=== PATIENT | male | born 1955 | race Caucasian/White ===

== ENCOUNTER 2016-07-05 09:58 | Outpatient (CLI) | payer MEDICARE | END 2016-07-05 09:59 | disposition home or self-care (01) | DX: E78.5 Hyperlipidemia, unspecified (principal); Z79.899 Other long term (current) drug therapy; F41.9 Anxiety disorder, unspecified; N18.2 Chronic kidney disease, stage 2 (mild) ==

== ENCOUNTER 2016-09-04 10:12 | Outpatient (CLI) | payer OTHER, MEDICARE ==
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
== END 2016-09-04 10:13 | disposition home or self-care (01) ==
LOC: DI 10:12
PROVIDERS: ATTEND Internal Medicine
DX: M50.30 Other cervical disc degeneration, unspecified cervical region (principal); M47.812 Spondylosis without myelopathy or radiculopathy, cervical region; G31.9 Degenerative disease of nervous system, unspecified; I67.82 Cerebral ischemia
CPT/HCPCS: 70450; 72125

== ENCOUNTER 2017-01-28 08:00 | Outpatient (CLI) | payer MEDICARE ==
[2017-01-28 20:24] LABS: ALBUMIN/GLOBULIN RATIO 1.4 (1.0-2.2); BILIRUBIN,TOTAL 0.9 mg/dL (0.2-1.0); BUN - BLOOD UREA NITROGEN 16 mg/dL (6-20); CALCIUM 9.2 mg/dL (8.5-10.3); CARBON DIOXIDE - CO2 28 mmol/L (21-32); CHLORIDE 102 mmol/L (101-111); CHOL/HDL RATIO 5.4 (<5.0); CHOLESTEROL 172 mg/dL; CREATININE 0.9 mg/dL (0.6-1.2); GFR - MDRD 86 (>89); GLUCOSE 91 mg/dL (70-100); HDL CHOLESTEROL 32 mg/dL; LDL/HDL RATIO 2.3 (<3.6); POTASSIUM 3.8 mmol/L (3.5-5.0); SODIUM 138 mmol/L (135-145); TRIGLYCERIDES 332 mg/dL; VLDL CHOLESTEROL 66 mg/dL
== END 2017-01-28 08:01 | disposition home or self-care (01) ==
LOC: LAB.N 08:00
PROVIDERS: ATTEND Internal Medicine
DX: N18.2 Chronic kidney disease, stage 2 (mild) (principal); E78.5 Hyperlipidemia, unspecified; Z12.5 Encounter for screening for malignant neoplasm of prostate
CPT/HCPCS: 36415; 80053; 80061; G0103; 84153

== ENCOUNTER 2017-08-07 10:42 | Outpatient (CLI) | payer MEDICARE ==
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
== END 2017-08-07 10:43 | disposition home or self-care (01) ==
LOC: DI.N 10:42
PROVIDERS: ATTEND Internal Medicine
DX: J44.9 Chronic obstructive pulmonary disease, unspecified (principal)
CPT/HCPCS: 71046

== ENCOUNTER 2017-10-30 08:00 | Outpatient (CLI) | payer MEDICARE ==
[2017-10-30 13:10] LABS: HGB - HEMOGLOBIN 17.4 g/dL (14.0-18.0); MEAN CORPUSCULAR HEMOGLOBIN 32.1 pg (27.0-31.0); MEAN CORPUSCULAR HGB CONC 34.7 g/dL (32.0-36.0); MEAN CORPUSCULAR VOLUME 92.6 fL (80.0-94.0); MEAN PLATELET VOLUME 8.7 fL (7.4-11.4); RED BLOOD COUNT 5.41 10^6/uL (4.70-6.10); WHITE BLOOD COUNT 9.8 x10^3/uL (4.8-10.8)
[2017-10-30 13:20] LABS: ALBUMIN 4.4 g/dL (3.2-5.5); ALBUMIN/GLOBULIN RATIO 1.2 (1.0-2.2); ALKALINE PHOSPHATASE 30 IU/L (42-121); ALT ALANINE AMINOTRANSFERASE 42 IU/L (10-60); AST ASPARTATE AMINOTRANSFERASE 26 IU/L (10-42); BUN - BLOOD UREA NITROGEN 21 mg/dL (6-20); CALCIUM 9.1 mg/dL (8.5-10.3); CARBON DIOXIDE - CO2 26 mmol/L (21-32); CHLORIDE 100 mmol/L (101-111); CHOL/HDL RATIO 5.6 (<5.0); CHOLESTEROL 167 mg/dL; GFR - MDRD 75 (>89); GLUCOSE 112 mg/dL (70-100); HDL CHOLESTEROL 30 mg/dL; LDL CHOLESTEROL,CALCULATED 98 mg/dL; LDL/HDL RATIO 3.3 (<3.6); SODIUM 136 mmol/L (135-145); TOTAL PROTEIN 8.1 g/dL (6.7-8.2); VLDL CHOLESTEROL 39 mg/dL
== END 2017-10-30 08:01 | disposition home or self-care (01) ==
LOC: LAB.N 08:00
PROVIDERS: ATTEND Internal Medicine
DX: E78.5 Hyperlipidemia, unspecified (principal); Z79.899 Other long term (current) drug therapy; I10 Essential (primary) hypertension; R73.02 Impaired glucose tolerance (oral)
CPT/HCPCS: 36415; 80053; 80061; 84443; 85027; 87086; G0103; 83721; 84153

== ENCOUNTER 2018-02-19 11:54 | Outpatient (CLI) | payer MEDICARE ==
--- NOTE | 2018-02-19 13:35 | XRAY Report ---
Reason: MYALGIA Procedure Date: 02/19/2018 Accession Number: [id number] / [id number] Procedure: XR - Cervical Spine 2 View CPT Code: FULL RESULT: EXAM: CERVICAL SPINE RADIOGRAPHY EXAM DATE: 02/19/2018 12:55 PM. CLINICAL HISTORY: Cervical pain and stiffness with limited range of motion of the neck. COMPARISONS: None. TECHNIQUE: 2 views. FINDINGS: Alignment: Straightening of the normal cervical curvature. Bones: The cervical vertebral bodies and posterior elements are well visualized from the skull base through C5. No fractures or bone lesions. Disks: Normal. Disk heights are globally mildly reduced with anterior osteophytosis.. Facets: Uncovertebral joints and facet joints demonstrate moderate degenerative change. Soft Tissues: Normal. No prevertebral soft tissue swelling. The visualized lung apices are clear. IMPRESSION: Degenerative changes of the cervical spine. RADIA
--- NOTE | 2018-02-19 14:25 | XRAY Report ---
Reason: MYALGIA, LOW BACK PAIN Procedure Date: 02/19/2018 Accession Number: [id number] / [id number] Procedure: XR - Elbow 3 View RT CPT Code: FULL RESULT: EXAM: RIGHT ELBOW RADIOGRAPHY EXAM DATE: 02/19/2018 12:55 PM. CLINICAL HISTORY: Pain and stiffness, myalgia. COMPARISON: None. TECHNIQUE: 3 views. FINDINGS: Bones: Suggestion of periosteal reaction along the medial epicondyle, correlate to focal tenderness for potential of medial epicondylitis. No acute fracture is seen. Joints: Normal. No effusion. No subluxation. Soft Tissues: Normal. No soft tissue swelling. IMPRESSION: Question of medial epicondylitis, correlate to physical examination. RADIA
--- NOTE | 2018-02-19 15:42 | XRAY Report ---
Reason: MYALGIA, LOW BACK PAIN Procedure Date: 02/19/2018 Accession Number: [id number] / [id number] Procedure: XR - Shoulder 3 View LT CPT Code: FULL RESULT: EXAM: LEFT SHOULDER RADIOGRAPHY EXAM DATE: 02/19/2018 12:55 PM. CLINICAL HISTORY: Left shoulder pain and myalgia. COMPARISON: 02/13/2016. TECHNIQUE: 3 views. FINDINGS: Bones: Normal. No fracture or bone lesion. Joints: The glenohumeral joint is normal. There are degenerative changes of the AC joint, similar to 02/13/2016. Soft tissues: The visualized hemithorax is unremarkable. No soft tissue swelling. IMPRESSION: No dislocation. Degenerative changes of the AC joint. RADIA
== END 2018-02-19 11:55 | disposition home or self-care (01) ==
LOC: DI 11:54
PROVIDERS: ATTEND Internal Medicine
DX: M47.892 Other spondylosis, cervical region (principal); M19.012 Primary osteoarthritis, left shoulder
CPT/HCPCS: 72040

== ENCOUNTER 2018-09-02 08:00 | Outpatient (CLI) | payer MEDICARE ==
[2018-09-02 19:28] LABS: BASOPHILS % (AUTO) 0.5 %; EOSINOPHILS # (AUTO) 0.2 10^3/uL (0.0-0.7); EOSINOPHILS % (AUTO) 1.8 %; HGB - HEMOGLOBIN 17.5 g/dL (14.0-18.0); LYMPHOCYTES # (AUTO) 3.7 10^3/uL (1.5-3.5); MEAN CORPUSCULAR HEMOGLOBIN 31.6 pg (27.0-31.0); MEAN CORPUSCULAR HGB CONC 33.7 g/dL (32.0-36.0); MEAN CORPUSCULAR VOLUME 93.6 fL (80.0-94.0); MEAN PLATELET VOLUME 8.9 fL (7.4-11.4); MONOCYTES # (AUTO) 0.6 10^3/uL (0.0-1.0); MONOCYTES % (AUTO) 6.1 %; NEUTROPHILS # (AUTO) 5.4 10^3/uL (1.5-6.6); NEUTROPHILS % (AUTO) 54.6 %; PLT - PLATELET COUNT 214 10^3/uL (130-450); RED BLOOD COUNT 5.54 10^6/uL (4.70-6.10); RED CELL DISTRIBUTION WIDTH 13.9 % (12.0-15.0)
[2018-09-02 19:36] LABS: ALBUMIN 4.3 g/dL (3.2-5.5); ALBUMIN/GLOBULIN RATIO 1.1 (1.0-2.2); ALKALINE PHOSPHATASE 36 IU/L (42-121); ALT ALANINE AMINOTRANSFERASE 62 IU/L (10-60); AST ASPARTATE AMINOTRANSFERASE 37 IU/L (10-42); BILIRUBIN,TOTAL 1.3 mg/dL (0.2-1.0); BUN - BLOOD UREA NITROGEN 17 mg/dL (6-20); CALCIUM 9.4 mg/dL (8.5-10.3); CARBON DIOXIDE - CO2 29 mmol/L (21-32); CHLORIDE 98 mmol/L (101-111); CHOL/HDL RATIO 4.9 (<5.0); CHOLESTEROL 178 mg/dL; GFR - MDRD 75 (>89); GLUCOSE 132 mg/dL (70-100); HDL CHOLESTEROL 36 mg/dL; LDL CHOLESTEROL,CALCULATED 79 mg/dL; LDL/HDL RATIO 2.2 (<3.6); SODIUM 137 mmol/L (135-145); TOTAL PROTEIN 8.2 g/dL (6.7-8.2); VLDL CHOLESTEROL 63 mg/dL
== END 2018-09-02 23:59 | disposition home or self-care (01) ==
LOC: LAB.N 08:00
PROVIDERS: ATTEND Internal Medicine
DX: Z12.5 Encounter for screening for malignant neoplasm of prostate (principal); E78.5 Hyperlipidemia, unspecified; I12.9 Hypertensive chronic kidney disease with stage 1 through stage 4 chronic kidney disease, or unspecified chronic kidney disease; N18.2 Chronic kidney disease, stage 2 (mild)
CPT/HCPCS: 36415; 80061; 85651; G0103; 80053; 83721; 84153; 84443; 85025

== ENCOUNTER 2019-04-08 10:39 | Outpatient (CLI) | payer MEDICARE ==
[2019-04-08 19:47] LABS: ALBUMIN 4.4 g/dL (3.2-5.5); ALBUMIN/GLOBULIN RATIO 1.3 (1.0-2.2); ALKALINE PHOSPHATASE 32 IU/L (42-121); ALT ALANINE AMINOTRANSFERASE 35 IU/L (10-60); AST ASPARTATE AMINOTRANSFERASE 23 IU/L (10-42); BILIRUBIN,TOTAL 0.7 mg/dL (0.2-1.0); BUN - BLOOD UREA NITROGEN 17 mg/dL (6-20); CALCIUM 9.3 mg/dL (8.5-10.3); CARBON DIOXIDE - CO2 28 mmol/L (21-32); CHLORIDE 105 mmol/L (101-111); CHOL/HDL RATIO 5.8 (<5.0); CHOLESTEROL 173 mg/dL; CREATININE 0.9 mg/dL (0.6-1.2); GFR - MDRD 85 (>89); GLUCOSE 106 mg/dL (70-100); HDL CHOLESTEROL 30 mg/dL; LDL CHOLESTEROL,CALCULATED 98 mg/dL; LDL/HDL RATIO 3.3 (<3.6); SODIUM 142 mmol/L (135-145); TOTAL PROTEIN 7.8 g/dL (6.7-8.2); VLDL CHOLESTEROL 45 mg/dL
[2019-04-08 20:43] LABS: BILIRUBIN,URINE NEGATIVE (NEGATIVE); GLUCOSE, URINE (UA) NEGATIVE (NEGATIVE); KETONES,URINE (UA) NEGATIVE (NEGATIVE); LEUKOCYTE ESTERASE, URINE NEGATIVE (NEGATIVE); NITRITE,URINE NEGATIVE (NEGATIVE); OCCULT BLOOD,URINE NEGATIVE (NEGATIVE); PROTEIN,URINE NEGATIVE (NEGATIVE); UROBILINOGEN,URINE 0.2 (NORMAL) E.U./dL (NORMAL)
[2019-04-08 21:10] LABS: BACTERIA,URINE Rare /HPF (None Seen); CLARITY,URINE CLOUDY (CLEAR); MUCUS,URINE Moderate Strands; RBC,URINE 0-5 /HPF (0-5); SQUAMOUS EPITHELIAL CELL,UR RARE Squamous (<= Few)
== END 2019-04-08 23:59 | disposition home or self-care (01) ==
LOC: LAB.N 10:39
PROVIDERS: ATTEND Internal Medicine
DX: E78.5 Hyperlipidemia, unspecified (principal); I12.9 Hypertensive chronic kidney disease with stage 1 through stage 4 chronic kidney disease, or unspecified chronic kidney disease; N18.2 Chronic kidney disease, stage 2 (mild); R73.02 Impaired glucose tolerance (oral); R35.1 Nocturia
CPT/HCPCS: 36415; 80053; 80061; 81001; 83721; 84153; 84443

== ENCOUNTER 2023-03-28 07:57 | Outpatient (CLI) | payer MEDICARE ==
--- NOTE | 2023-03-28 15:36 | CT Report ---
PROCEDURE: ABDOMEN/PELVIS WO INDICATIONS: FLANK PAIN TECHNIQUE: A CT scan of the abdomen and pelvis was performed without the use of intravenous contrast. Images we re recorded and evaluated at appropriate window settings. Reformats: coronal and sagittal. For radiat ion dose reduction, the following was used: automated exposure control, adjustment of mA and/or kV ac cording to patient size. COMPARISON: None. FINDINGS: Visualized lung bases: No pleural effusion. Liver and biliary tree: Unremarkable noncontrast appearance. Gallbladder: No radiopaque cholelithiasis. Spleen: Unremarkable noncontrast appearance. Pancreas: No peripancreatic inflammatory change or fluid collection. Adrenal glands: Unremarkable noncontrast appearance. Kidneys and ureters: Punctate nonobstructing right renal stone versus hilar vascular calcification. O ther hilar vascular calcifications are also present. No left-sided renal stone visualized. No hydrour eteronephrosis bilaterally. No ureteral stone visualized bilaterally. Gastrointestinal tract: No bowel obstruction. Possible wall thickening with adjacent fat stranding of the splenic flexure of the colon versus artifact from underdistention. Peritoneal cavity: No free air or free fluid. Bladder: No bladder stones visualized. Pelvic organs: Unremarkable noncontrast appearance. Vasculature: No abdominal aortic aneurysm. Musculoskeletal: Degenerative change of the spine. IMPRESSION: 1. Possible tiny nonobstructing right renal stone versus renal hilar vascular calcification. No hydro ureteronephrosis or ureteral stone bilaterally. 2. Possible wall thickening with adjacent fat stranding of the splenic flexure of the colon, versus a rtifact from underdistention. Distribution of this potential finding raises the possibility of ischem ic colitis but other infectious or inflammatory colitis is also possible. Correlation with patient's symptoms is recommended. Reviewed by: Aaron Mccarty MD on 03/28/2023 3:35 PM PDT Approved by: Aaron Mccarty MD on 03/28/2023 3:35 PM PDT Station ID: [id number]
== END 2023-03-28 07:58 | disposition home or self-care (01) ==
LOC: DI 07:57
PROVIDERS: ATTEND Physician Assistant Medical
DX: N20.0 Calculus of kidney (principal)